=== PATIENT | male | born 1945 | race Caucasian/White ===

== ENCOUNTER 2021-07-03 02:26 | Emergency (ER) | payer MEDICARE, OTHER ==
--- NOTE | 2021-07-03 02:48 | EDM.PDOC ---
ED HPI GENERAL MEDICAL PROBLEM - General Stated Complaint: low heart rate Time Seen by Provider: 07/03/21 02:26 Source of Information: Reports: Patient, Family History Limitations: Reports: No Limitations - History of Present Illness INITIAL COMMENTS - FREE TEXT/NARRATIVE: c/o syncope pt came by EMS, and dtr arrived shortly thereafter no prior h/o CV or lung problems, did smoke 1 ppd, stopped 38y ago for several wks he has had CP with exertion, no longer able to mow grass with walking mower without stopping for 10 minutes until CP went away had EST last week locally with Dr Saxena who referred him to cardiology, has apt with CV at [facility] in [place] next week, never seen a incubator machine operator in the past reports she heard pt get up from bed, then he fell to the floor, he had snoring respirations altho said she knew he was not asleep, after 2-3 minutes he got up from the floor and used the bathroom and took a shower EMS called, when they arrived pt walked out of bathroom and collapsed in front of them, he again had snoring respirations, EMS could not get a pulse and did CPR for less than a minute pt was then alert on arrival at ED he was fully alert, conversant, knew his location, his home address, had no c/o however HR in 40s which pt says is "usual for him" however the rhythm is irregular and there is no P wave, there are nonspecific T- wave changes, no ST elevation there is no prior EKG in [facility] has had COVID vax x 2, not had COVID illness that he knows of BS > 200 by EMS at scene records from EST last week are not available, attempt to access [facility] [employer] was unsuccessful - Related Data Allergies Allergy/AdvReac Type Severity Reaction Status Date / Time No Known Allergies Allergy Verified 07/03/21 03:53 Home Meds: Home Meds Aspirin [Halfprin] 81 mg PO DAILY 05/23/16 [History] Cholecalciferol (Vitamin D3) [Vitamin D3] 2,000 units PO DAILY 05/23/16 [History] Chondroitin/Glucosamine [Glucosamine-Chondroitin] 1 cap PO DAILY 05/23/16 [History] Hydrochlorothiazide/Lisinopril [Lisinopril-HCTZ 20-25 MG] 1 tab PO DAILY 05/23/16 [History] Metoprolol Succinate [Toprol XL 100mg] 100 mg PO BEDTIME 05/23/16 [History] Multivitamin [Multivitamins] 1 each PO DAILY 05/23/16 [History] Sildenafil Citrate [Viagra] 100 mg PO ASDIRECTED PRN 05/23/16 [History] atorvaSTATin [Lipitor] 20 mg PO BEDTIME 05/23/16 [History] metFORMIN [Glucophage] 500 mg PO BIDMEALS 05/23/16 [History] Past Medical History HEENT History: Reports: Cataract, Other (See Below) Other HEENT History: PRESBYOPIA, HYPERMETROPIATEAR FILM INSUFFICIENCY, ASTIGMATISM Cardiovascular History: Reports: High Cholesterol, Hypertension Respiratory History: Reports: None Gastrointestinal History: Reports: None Genitourinary History: Reports: None Musculoskeletal History: Reports: Back Pain, Chronic Other Musculoskeletal History: LUMBAGO, SPINAL STENOSIS OF LUMBAR REGION Neurological History: Reports: None Psychiatric History: Reports: None Endocrine/Metabolic History: Reports: Diabetes, Type II Hematologic History: Reports: None Immunologic History: Reports: None Oncologic (Cancer) History: Reports: None Dermatologic History: Reports: None - Infectious Disease History Infectious Disease History: Reports: Chicken Pox, Measles - Past Surgical History HEENT Surgical History: Reports: Cataract Surgery Neurological Surgical History: Reports: Other (See Below) ED ROS GENERAL - Review of Systems Review Of Systems: See Below Constitutional: Reports: No Symptoms. Denies: Fever HEENT: Reports: No Symptoms Respiratory: Reports: No Symptoms Cardiovascular: Reports: No Symptoms, Other (intermittent CP in past few wks with exertion, none tonight) Endocrine: Reports: No Symptoms GI/Abdominal: Reports: No Symptoms : Reports: No Symptoms Musculoskeletal: Reports: No Symptoms Skin: Reports: No Symptoms Neurological: Reports: No Symptoms Psychiatric: Reports: No Symptoms Hematologic/Lymphatic: Reports: No Symptoms Immunologic: Reports: No Symptoms ED EXAM, GENERAL - Physical Exam Exam: See Below Free Text/Narrative:: he moved easily on is own from EMS gurney to ED bed Exam Limited By: No Limitations General Appearance: Alert, WD/WN, No Apparent Distress, Other (alert, pleasant, conversant, NAD) Ears: Hearing Grossly Normal Nose: Normal Inspection Throat/Mouth: Normal Inspection, Normal Voice, No Airway Compromise Head: Atraumatic, Normocephalic Neck: Normal Inspection, Supple, Non-Tender, Full Range of Motion. No: Lymphadenopathy (R), Lymphadenopathy (L) Respiratory/Chest: No Respiratory Distress, Lungs Clear, Normal Breath Sounds, No Accessory Muscle Use, Chest Non-Tender Cardiovascular: No Edema, No Gallop, No JVD, No Murmur, No Rub, Bradycardia, Irregularly Irregular GI/Abdominal: Soft, Non-Tender, No Distention Back Exam: Normal Inspection, Full Range of Motion Extremities: Normal Inspection, Non-Tender, No Pedal Edema Neurological: Alert, Oriented, CN II-XII Intact, Normal Cognition, No Motor/Sensory Deficits Psychiatric: Normal Affect, Normal Mood Skin Exam: Warm, Dry, Intact, Normal Color, No Rash Lymphatic: No Adenopathy #1 Interpretation EKG Date: 07/03/21 Time: 02:35 Rhythm: Other Rate (Beats/Min): 43 QRS: Normal (nonspecific ST changes without ST elevation, IVCD, irreg irreg) Course - Orders/Labs/Meds Orders: Active Orders 24 hr Category Date Time Status EKG Documentation Completion [RC] STAT Care 07/03/21 02:38 Active Chest 1V Frontal [CR] Stat Exams 07/03/21 02:38 Taken Head wo Cont [CT] Stat Exams 07/03/21 02:39 Taken CORONAVIRUS COVID-19 MANUEL [MOLEC] Stat Lab 07/03/21 03:45 Received Labs: Laboratory Tests 07/03/21 07/03/21 07/03/21 Range/Units 02:57 02:57 02:57 WBC 6.4 (3.2-10.1) x10-3/uL RBC 3.29 L (3.90-5.90) x10(6)uL Hgb 9.5 L (12.9-17.7) g/dL Hct 28.5 L (38.3-50.1) % MCV 86.7 (80.8-98.7) fL MCH 28.9 (27.0-33.3) pg MCHC 33.4 (28.7-35.3) g/dL RDW 13.3 (12.4-15.0) % Plt Count 180 (117-477) x10(3)uL MPV 9.6 (6.7-11.0) fL Neut % (Auto) 65.6 (40.3-71.8) % Lymph % (Auto) 24.2 (15.8-45.3) % [place] % (Auto) 5.3 L (5.5-15.2) % Eos % (Auto) 4.0 (0.1-6.8) % Baso % (Auto) 0.9 (0.3-3.8) % Neut # (Auto) 4.2 (1.7-6.9) x10-3/uL Lymph # (Auto) 1.5 (0.5-4.5) x10-3/uL [place] # (Auto) 0.3 (0.0-1.2) x10-3/uL Eos # (Auto) 0.3 (0.0-0.6) x10-3/uL Baso # (Auto) 0.1 (0.0-0.3) x10-3/uL PT 31.4 H (9.0-11.1) sec INR 3.14 H (1.00-1.24) D-Dimer, Quantitative 0.85 H (0.0-0.59) mg/LFEU Sodium 143 (135-145) mmol/L Potassium 3.9 (3.5-5.3) mmol/L Chloride 106 (100-110) mmol/L Carbon Dioxide 23 (21-32) mmol/L BUN 43 H (7-18) mg/dL Creatinine 1.7 H (0.70-1.30) mg/dL Est Cr Clr Drug Dosing TNP Estimated GFR (MDRD) 39 L (>60) BUN/Creatinine Ratio 25.3 H (9-20) Glucose 233 H (80-116) mg/dL Calcium 8.5 L (8.6-10.2) mg/dL Magnesium (1.8-2.5) mg/dL Total Bilirubin 0.4 (0.1-1.3) mg/dL AST 31 H (5-25) IU/L ALT 41 H (12-36) U/L Alkaline Phosphatase 56 (56-112) IU/L Troponin I (4.0-60.3) pg/mL C-Reactive Protein (0.5-0.9) mg/dL NT-Pro-B Natriuret Pep (<=450) pg/mL Total Protein 6.8 (6.0-8.0) g/dL Albumin 3.4 (3.2-4.6) g/dL Globulin 3.4 g/dL Albumin/Globulin Ratio 1.0 TSH, Ultra Sensitive (0.36-3.74) IU/mL 07/03/21 07/03/21 Range/Units 02:57 02:57 WBC (3.2-10.1) x10-3/uL RBC (3.90-5.90) x10(6)uL Hgb (12.9-17.7) g/dL Hct (38.3-50.1) % MCV (80.8-98.7) fL MCH (27.0-33.3) pg MCHC (28.7-35.3) g/dL RDW (12.4-15.0) % Plt Count (117-477) x10(3)uL MPV (6.7-11.0) fL Neut % (Auto) (40.3-71.8) % Lymph % (Auto) (15.8-45.3) % [place] % (Auto) (5.5-15.2) % Eos % (Auto) (0.1-6.8) % Baso % (Auto) (0.3-3.8) % Neut # (Auto) (1.7-6.9) x10-3/uL Lymph # (Auto) (0.5-4.5) x10-3/uL [place] # (Auto) (0.0-1.2) x10-3/uL Eos # (Auto) (0.0-0.6) x10-3/uL Baso # (Auto) (0.0-0.3) x10-3/uL PT (9.0-11.1) sec INR (1.00-1.24) D-Dimer, Quantitative (0.0-0.59) mg/LFEU Sodium (135-145) mmol/L Potassium (3.5-5.3) mmol/L Chloride (100-110) mmol/L Carbon Dioxide (21-32) mmol/L BUN (7-18) mg/dL Creatinine (0.70-1.30) mg/dL Est Cr Clr Drug Dosing Estimated GFR (MDRD) (>60) BUN/Creatinine Ratio (9-20) Glucose (80-116) mg/dL Calcium (8.6-10.2) mg/dL Magnesium 1.8 (1.8-2.5) mg/dL Total Bilirubin (0.1-1.3) mg/dL AST (5-25) IU/L ALT (12-36) U/L Alkaline Phosphatase (56-112) IU/L Troponin I 177.5 H* (4.0-60.3) pg/mL C-Reactive Protein < 0.2 L (0.5-0.9) mg/dL NT-Pro-B Natriuret Pep 2301 H* (<=450) pg/mL Total Protein (6.0-8.0) g/dL Albumin (3.2-4.6) g/dL Globulin g/dL Albumin/Globulin Ratio TSH, Ultra Sensitive 4.82 H (0.36-3.74) IU/mL Meds: Medications Discontinued Medications Generic Name Dose Route Start Last Admin Trade Name Papiq PRN Reason Stop Dose Admin Aspirin 324 mg 07/03/21 03:52 07/03/21 04:15 Aspirin 81 Mg Tab.Chew PO 07/03/21 03:53 324 mg ONETIME ONE Administration Nitroglycerin 1 gm 07/03/21 03:53 07/03/21 04:16 Nitroglycerin 2% Oint 1 Gm Ud Packet TOP 07/03/21 03:54 1 gm ONETIME ONE Administration - Re-Assessments/Exams Free Text/Narrative Re-Assessment/Exam: 07/03/21 03:03 [facility] called, request made for EKG and Luz not willing to fax an old EKG, said I would have to talk to medical records irrespective of the fact that I had an unstable pt with symptomatic bradycardia and syncope that my RN and I were trying to stabilize, as a delay in talking to medical records would further endanger the life of the pt, I requested that cardiology call me back and gave my number 07/03/21 03:30 dtr just returned, having gone home to get his home med list, also brings in a pill bottle for Imdur 30 mg/d which was begun by PCP Dr Murphy 2d ago 07/03/21 04:17 old EKG not obtained for comparison, still not able to access [facility] records here as link is not working for some reason Luz called my RN Lydia earlier and said pt would be transferred ED to ED, perhaps d/t limited beds pt not a candidate for immediate cath as he is asymptomatic and there are no ST changes HR did increase up to SR, mainly a junctional rhythm altho he did have some short stretches of sinus rhythm with prolonged MO altho not sustained enough to obtain a 2nd EKG while in SR pt accepted by Dr Henry from [facility] ED, Dr Henry enquired why pt is on warfarin (INR 3.1 and therapeutic), however pt reports warfarin was started over 1y ago by PCP Dr Murphy "because my blood was too thick" and "I was at increased risk of heart attack or stroke" pt has remained asxs here, RR 17, BP crept up to 160/79 now, will add 1" nitropaste, PO remains 99% on RA pt agrees to transfer 07/03/21 04:24 wbc/crp/TP are all neg, no clinical evidence of infection no comparison labs are available, does appear to have CKD mild inc'd d-dimer is nondiagnostic and dtr remain at bedside, pt and family agree to transfer, EMS here now and given report Departure - Departure Time of Disposition: 04:29 Disposition: DC/Tfer to Acute Hospital 02 Reason for Transfer *Q: Other Condition: Serious Clinical Impression: NSTEMI, initial episode of care, Collapse fleeting, Chronic kidney disease, Junctional bradycardia, Hyperglycemia, Elevated brain natriuretic peptide (BNP) level, Normochromic normocytic anemia, Elevated LFTs Referrals: Dre Murphy MD [Primary Care Provider] - - My Orders Last 24 Hours: My Active Orders 07/03/21 02:38 EKG Documentation Completion [RC] STAT Chest 1V Frontal [CR] Stat 07/03/21 02:39 Head wo Cont [CT] Stat 07/03/21 03:45 CORONAVIRUS COVID-19 MANUEL [MOLEC] Stat - Assessment/Plan Last 24 Hours: My Active Orders 07/03/21 02:38 EKG Documentation Completion [RC] STAT Chest 1V Frontal [CR] Stat 07/03/21 02:39 Head wo Cont [CT] Stat 07/03/21 03:45 CORONAVIRUS COVID-19 MANUEL [MOLEC] Stat
[2021-07-03] MEDS ORDERED: Aspirin 81 MG Tab.Chew PO ONE (03:52)
[2021-07-03] MEDS ORDERED: Nitroglycerin 2% Oint 1 GM UD Packet TOP ONE ×2 (03:53→04:33)
== END 2021-07-03 04:45 ==
LOC: FB.ED 02:26
DX: I21.4 Non-ST elevation (NSTEMI) myocardial infarction (principal); I12.9 Hypertensive chronic kidney disease with stage 1 through stage 4 chronic kidney disease, or unspecified chronic kidney disease; N18.9 Chronic kidney disease, unspecified; D63.1 Anemia in chronic kidney disease; R00.1 Bradycardia, unspecified; E11.65 Type 2 diabetes mellitus with hyperglycemia; R79.1 Abnormal coagulation profile; R79.89 Other specified abnormal findings of blood chemistry; E78.00 Pure hypercholesterolemia, unspecified; Z87.891 Personal history of nicotine dependence; Z79.82 Long term (current) use of aspirin; Z79.899 Other long term (current) drug therapy; Z79.84 Long term (current) use of oral hypoglycemic drugs; Z20.822 Contact with and (suspected) exposure to COVID-19
CPT/HCPCS: 36415; 70450; 71045; 80053; 83735; 83880; 84443; 84484; 85025; 85379; 85610; 86140; 93005; 99285; A9270; U0002

== ENCOUNTER 2022-03-10 08:31 | Emergency (ER) | payer MEDICARE, OTHER ==
[2022-03-10 08:49] VITALS: BP 177/67; PULSE 70
[2022-03-10] MEDS ORDERED: oxyCODONE ER 10 MG TAB.ER PO ONE (09:26)
[2022-03-10] MEDS ORDERED: Cyclobenzaprine 10 MG Tab PO ONE (09:26)
== END 2022-03-10 10:00 | disposition home or self-care (01) ==
LOC: FB.ED 08:31
DX: M25.512 Pain in left shoulder (principal); M50.33 Other cervical disc degeneration, cervicothoracic region; E78.00 Pure hypercholesterolemia, unspecified; I10 Essential (primary) hypertension; E11.9 Type 2 diabetes mellitus without complications; Z87.891 Personal history of nicotine dependence; Z79.899 Other long term (current) drug therapy; Z79.82 Long term (current) use of aspirin; Z79.84 Long term (current) use of oral hypoglycemic drugs; Z79.01 Long term (current) use of anticoagulants
CPT/HCPCS: 36415; 71045; 80053; 83880; 84484; 85025; 85610; 99283; 99285-25; A9270-GY

== ENCOUNTER 2022-06-16 09:46 | Observation (INO) | payer MEDICARE, OTHER ==
[2022-06-16] MEDS ORDERED: Pantoprazole 40 MG Vial IVPUSH STA (10:24)
[2022-06-16 10:26] LABS: ESTIMATED GFR 36 mL/min (>60)
[2022-06-16] MEDS ORDERED: Pantoprazole 40 MG Vial ONE (10:45)
[2022-06-16] MEDS: Sodium Chloride 0.9% 250 ML IV SCH ×2 (15:15→20:48)
[2022-06-16] MEDS ORDERED: Furosemide 20 MG/2 ML VIAL IVPUSH ONE ×2 (17:00→20:24)
[2022-06-16] MEDS ORDERED: Furosemide 20 MG Tab PO ONE (17:13)
[2022-06-16] MEDS ORDERED: Furosemide 20 MG/2 ML VIAL ONE (20:08)
[2022-06-16] MEDS: Sucralfate 1 GM Tab PO SCH (20:14)
[2022-06-16] MEDS: Sodium Chloride 0.9% 10 ML Syringe FLUSH PRN ×2 (20:17→23:40)
[2022-06-16] MEDS ORDERED: LISINOPRIL PO SCH (21:00)
[2022-06-16] MEDS: Pantoprazole 40 MG Vial IVPUSH SCH (21:00)
[2022-06-16] MEDS ORDERED: HYDROCHLOROTHIAZIDE PO SCH (21:00)
[2022-06-16] MEDS ORDERED: Furosemide 20 MG Tab ONE (23:31)
[2022-06-17] MEDS ORDERED: Acetaminophen 325 MG Tab PO PRN (03:03)
[2022-06-17 06:59] LABS: ESTIMATED GFR 48 mL/min (>60)
[2022-06-17] MEDS: Sucralfate 1 GM Tab PO SCH ×2 (07:18→10:49)
[2022-06-17] MEDS: Pantoprazole 40 MG Vial IVPUSH SCH (08:50)
[2022-06-17] MEDS ORDERED: FOLIC ACID PO SCH (09:00)
[2022-06-17] MEDS ORDERED: IRON PO SCH (09:00)
[2022-06-17] MEDS ORDERED: MULTIVITAMIN PO SCH (09:00)
[2022-06-17] MEDS ORDERED: [UNRECOGNIZED DRUG - OTHER] PO SCH (09:00)
[2022-06-17] MEDS ORDERED: Iron Polysaccharides Complex 150 MG Cap PO SCH (10:00)
[2022-06-17 11:54] VITALS: BP 134/61; PULSE 54
== END 2022-06-17 12:35 | disposition home or self-care (01) ==
LOC: FB.ED 09:46 → FB.MS 13:47
PROVIDERS: ADMIT Emergency Medicine; ATTEND Family Medicine
DX: D64.9 Anemia, unspecified (principal); K92.2 Gastrointestinal hemorrhage, unspecified; I25.10 Atherosclerotic heart disease of native coronary artery without angina pectoris; I48.19 Other persistent atrial fibrillation; I25.2 Old myocardial infarction; E78.00 Pure hypercholesterolemia, unspecified; E66.9 Obesity, unspecified; M51.36 Other intervertebral disc degeneration, lumbar region; N18.31 Chronic kidney disease, stage 3a; E11.22 Type 2 diabetes mellitus with diabetic chronic kidney disease; I12.9 Hypertensive chronic kidney disease with stage 1 through stage 4 chronic kidney disease, or unspecified chronic kidney disease; Z79.82 Long term (current) use of aspirin; Z79.899 Other long term (current) drug therapy; Z79.84 Long term (current) use of oral hypoglycemic drugs; Z79.01 Long term (current) use of anticoagulants; Z98.890 Other specified postprocedural states; Z87.891 Personal history of nicotine dependence; Z95.1 Presence of aortocoronary bypass graft
CPT/HCPCS: 36415; 36430; 74176; 80048; 80053; 82270; 83880; 84484; 85014; 85018; 85025; 85610; 85730; 86850; 86900; 86901; 86920; 86922; 93005; 96374; 96375; 96376; 99285; A9270; C9113; G0378; J1940; J3490; J7050; P9016